=== PATIENT | female | born 1995 | race American Indian/Alaskan Native ===

== ENCOUNTER 2017-04-16 14:47 | Emergency (ER) | payer MEDICAID | END 2017-04-17 03:30 | disposition left against medical advice (07) | LOC: ED 14:47 | DX: Z53.21 Procedure and treatment not carried out due to patient leaving prior to being seen by health care provider (principal) ==

== ENCOUNTER 2017-04-16 16:00 | Outpatient (CLI) | payer MEDICAID ==
[2017-04-16 16:47] VITALS: BP 126/62
[2017-04-16] MEDS ORDERED: VISTARIL PO ONE (18:06)
[2017-04-16] MEDS ORDERED: LACTATED RINGERS 500 ML IV ONE (19:08)
== END 2017-04-16 18:20 | disposition home or self-care (01) ==
LOC: TRG 16:00
PROVIDERS: ATTEND Obstetrics & Gynecology
DX: O47.03 False labor before 37 completed weeks of gestation, third trimester (principal); Z3A.31 31 weeks gestation of pregnancy
CPT/HCPCS: 59025; Q0177